=== PATIENT | male | born 1985 | race Caucasian/White ===

== ENCOUNTER 2023-12-05 21:53 | Emergency (ER) | payer OTHER, SELFPAY ==
[2023-12-05 22:01] VITALS: BP 127/83; PULSE 95; RESP 16; TEMP 36.4; O2SAT 94; BMI 24.3
--- NOTE | 2023-12-05 22:23 | ED_ITS ---
HPI - General Adult General Chief complaint: Allergic Reaction Stated complaint: Possible allergic reaction Time Seen by Provider: 12/05/23 22:09 History of Present Illness HPI narrative: This 38-year-old male comes in reporting sore throat that began yesterday. This evening he developed a generalized maculopapular rash on his trunk. He does not report any shortness of breath. He is not showing any signs of angioedema. Related Data Home Medications Medication Instructions Recorded Confirmed atomoxetine 40 mg capsule 40 mg PO QAM 12/05/23 12/05/23 pantoprazole 20 mg tablet,delayed 20 mg PO DAILY 12/05/23 12/05/23 release Previous Rx's Medication Instructions Recorded methylprednisolone 4 mg tablets in See Rx Instructions PO .COMPLEX 12/05/23 a dose pack (Medrol (Bryn)) #21 ea Allergies Allergy/AdvReac Type Severity Reaction Status Date / Time No Known Drug Allergies Allergy Verified 12/05/23 21:59 Review of Systems Status of ROS: Reports: 10 or more systems reviewed and unremarkable except as noted in History and below Narrative: Constitutional: No fevers, no weight gain or loss. Eyes: No discharge. No vision changes. HENT: No congestion, no ear pain. He reports a sore throat. Cardiovascular: No chest pain, no palpitations. Respiratory: No shortness of breath, no wheezes. He reports a chronic occasional cough since he quit smoking 5 years ago. Gastrointestinal: No abdominal pain, no vomiting, no diarrhea. Genitourinary: No dysuria, no hematuria. Musculoskeletal: Normal range of motion. Skin: No rashes, no pruritis. Neurological: No dizziness, weakness, sensory change, speech change. Endo/Heme/Allergies: No bruising or bleeding. No polydipsia. Pysch: no suicidality, no anxiety, no insomnia. All other systems reviewed and are negative. Exam Narrative: Exam Narrative: Constitutional: Well-developed, well-nourished, no acute distress. HEENT: Normocephalic, atraumatic. Pharyngeal erythema without exudate or tonsillar hypertrophy. No sign of angioedema. Neck: Normal range of motion. Nontender. Supple. Heart: Regular. No murmurs. Normal rate. Intact distal pulses. Lungs: Clear to auscultation. No chest discomfort. No wheezes, rhonchi, or rales. Abdomen: Normal bowel sounds. Nontender. No rebound tenderness. Genitalia: Deferred. Back: No midline tenderness. Normal range of motion. Extremities: Normal range of motion. No injury. Skin: Intact. No rash. Warm. No erythema or pallor. Neurologic: No altered sensation. No weakness. Alert and oriented. Psychiatric: No suicidality. No anxiety or depression. No insomnia. Nursing notes and vitals signs are reviewed. Const: Vital Signs, click to edit/add: Vital Signs - 24 hr 12/05/23 22:01 Temperature 97.5 F L Pulse Rate [Pulse Oximeter] 95 Respiratory Rate 16 [facility] 127/83 Pulse Oximetry 94 Oxygen Delivery Me thod Room Air Course Vital Signs Vital signs: Initial Vital Signs Temperature 97.5 F L 12/05/23 22:01 Temperature Source Temporal Artery Scan 12/05/23 22:01 Pulse Rate 95 12/05/23 22:01 Pulse Rhythm Regular 12/05/23 22:01 Respiratory Rate 16 12/05/23 22:01 Blood Pressure 127/83 12/05/23 22:01 Blood Pressure Mean 97 12/05/23 22:01 Blood Pressure Position Sitting 12/05/23 22:01 Pulse Oximetry 94 12/05/23 22:01 Oxygen Delivery Method Room Air 12/05/23 22:01 Vital Signs Temperature 97.5 F L 12/05/23 22:01 Pulse Rate 95 12/05/23 22:01 Respiratory Rate 16 12/05/23 22:01 Blood Pressure 127/83 12/05/23 22:01 Pulse Oximetry 94 12/05/23 22:01 Oxygen Delivery Method Room Air 12/05/23 22:01 Temperature 97.5 F L 12/05/23 22:01 Pulse Rate 95 12/05/23 22:01 Respiratory Rate 16 12/05/23 22:01 Blood Pressure 127/83 12/05/23 22:01 Pulse Oximetry 94 12/05/23 22:01 Oxygen Delivery Method Room Air 12/05/23 22:01 Medical Decision Making MDM Narrative Medical decision making narrative: This patient comes in with sore throat and now has developed a generalized maculopapular rash mostly on his trunk. He did take Benadryl 50 mg prior to arrival states that he feels that the rash is improving. He is not showing any sign of angioedema or anaphylaxis. The patient did receive an oral dose of dexamethasone 10 mg. Rapid strep test is obtained also and this returns negative. This patient is okay to return home. He did receive a prescription for Medrol Dosepak and is encouraged to use antihistamines as needed and directed also. Lab Data Labs: Lab Results 12/05/23 Range/Units 22:30 Group A Strep DNA NOT DETECTED (Not Detectd) Discharge Plan Discharge Clinical Impression: Acute viral syndrome Patient Disposition: Home, Self-Care Condition: Stable Additional Instructions: Take medication as prescribed. Use antihistamines also as needed and directed. Follow up with MD return if worsening. Prescriptions: New methylprednisolone [Medrol (Bryn)] 4 mg tablets,dose pack See Rx Instructions .ROUTE .COMPLEX Qty: 21 0RF Rx Instructions: orally per package directions No Action pantoprazole 20 mg tablet,delayed release (DR/EC) 20 mg PO DAILY atomoxetine 40 mg capsule 40 mg PO QAM Follow Up/Referrals: Efren James MD [Staff Physician] - Stand Alone Forms: [employer] Info Instructions
[2023-12-05 22:58] LABS: Strep A DNA Probe* NOT DETECTED (Not Detectd)
== END 2023-12-05 23:29 | disposition home or self-care (01) ==
PROVIDERS: Emergency Provider Emergency Medicine Emergency Medical Services
DX: B34.9 Viral infection, unspecified (principal)
CPT/HCPCS: 87651; 99282; 99283; 99284

== ENCOUNTER 2025-04-24 21:41 | Emergency (ER) | payer OTHER, SELFPAY ==
--- OUTSIDE RECORDS SUMMARY | 2025-04-24 21:43 | XMS_ITS | Clinical Summary ---
[facility] Address [address] [place] [address] Care Team Providers Care Ms Sql Developer Name Role Phone Onofre Sher MD Primary Care Provider Source Comments You are receiving this document as you are listed as the primary care provider,follow-up provider, or the patient has been referred to you for consultation.This is in compliance with the Medicare and[facility] Cent[facility] EHR Incentive Program,which states Providers who transition their patient to another setting of careor provider of care or refers their patient to another provider of care shouldprovide summary care record for each transition of care or referral. [facility] [place] Allergies No known active allergies Medications Dextromethorphan HBr (VICKS DAYQUIL COUGH OR) Take by mouth. 4 Active atomoxetine (STRATTERA) 40 MG capsule Take 1 Capsule (40 mg) by mouth every morning. 3 Active omeprazole (PRILOSEC) 20 MG capsule Take 1 Capsule (20 mg) by mouth daily. Take 1 hour before a meal. Active pantoprazole DR (PROTONIX) 20 MG tabletIndication s:PUD (peptic ulcer disease) Take 1 Tablet (20 mg) by mouth daily. 90 Tablet 3 Active Additional Information Patient not taking.Reported on 04/09/[address] (PROTONIX) 40 MG tabletIndication s:Gastroesophage al reflux disease with esophagitis without hemorrhage Take 1 Tablet (40 mg) by mouth daily. 90 Tablet 3 4 Active Active Problems Problem Noted Date Diagnosed Date PUD (peptic ulcer disease) 09/04/2023 Family history of colon cancer 09/04/2023 Immunizations Immunization Administration Dates Next Due [place] COVID-19 Vaccine 2021 MPSV4 (Menomune) 10/24/2002 TDAP (ADACEL) 11/07/2006 Family History Medical History Relation Name Comments Cancer, Colon Mother Relation Name Status Comments Mother Social History Tobacco Use Types Packs/Day Years Used Date Smoking Tobacco: Former Cigarettes Q uit: 09/04/2019 Smokeless Tobacco: Never Tobacco Cessation:Counseling Given: Not Answered Comments:Smoking History Packs/day: Alcohol Use Standard Drinks/Week Comments Yes 7 (1 standard drink = 0.6 oz pur e alcohol) Financial Resource Strain Answer Date R ecorded Is it hard for you to pay fo r the very basics like food, housing, medical care or heating? No 09/04/2023 Food Insecurity Answer Date Recorded Does your food run out before you have the money to buy more? No 09/04/2023 Transportation Needs Answer Date Record ed Does a lack of transportatio n keep you from your medical appointments or from getting your medications? 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 Respiratory Rate 16 02/13/2024 10:3 0 AM CDT Oxygen Saturation 96% 04/09/2024 8:0 9 AM CDT Inhaled Oxygen Concentration - - Weight 90.7 kg (200 lb) 02/13/2024 8:39 AM CDT Height 190.5 cm (6' 3) 02/13/2024 8:39 AM CDT Body Mass Index 25 02/13/2024 8:39 AM CDT Plan of Treatment Health Maintenance Due Date Last Done Comments Hep C Screening (Preventive Services) 1983 HIV Screening (Preventive Services) 1999 HepB Vaccine (1) 2002 DTaP/Tdap/Td Vaccine (2 - Tdap) 11/07/2016 6 COVID-19 Vaccine (2 - 2023-2 5 season) 2024 2021 Influenza Vaccine (Season Ended) 2025 Adult Preventive Visit 09/04/2025 09/04/2023 Cholesterol 09/04/2028 09/04/2023 Zoster/Shingles Vaccine (1 of 2) 2033 MCV4 Vaccine Aged Out 10/24/2002 No longer eligi ble based on patient's age to complete this topic HPV Vaccine Aged Out No longer eligi ble based on patient's age to complete this topic HepA Vaccine Aged Out No longer eligi ble based on patient's age to complete this topic Hib Vaccine Aged Out No longer eligi ble based on patient's age to complete this topic IPV (Polio) Vaccine Aged Out No longe r eligible based on patient's age to complete this topic Meningococcal B Vaccine Aged Out No l onger eligible based on patient's age to complete this topic Pneumococcal Vaccine Aged Out No long er eligible based on patient's age to complete this topic Procedures Procedure Name Priority Date/Time Associated Diagnosis Comments LIPID PANEL & DIRECT LDL (IF NEEDED) Routine 09/04/2023 2:55 PM CDT Screening for cholesterol level from Last 3 Months or Most Recently Relevant to Health Maintenance Results * (ABNORMAL) Lipid Panel and Direct LDL(If Needed) (09/04/2023 2:55 PM CDT) [facility] Cholesterol 123 0 - 199 mg/dL 09/04/2023 5:24 PM CDT [facility] Triglyceride 214(H) <=149 mg/dL 09/04/2023 5:24 PM CDT [facility] HDL Cholesterol 25(L) >=40 mg/dL 5:24 PM CDT [facility] LDL, Calculated 55 <130 mg/dL 5:24 PM CDT [facility] Non HDL Chol, Calculated 98 <=159 mg/dL 09/04/2023 5:24 PM CDT [facility] Cholesterol/HDL Ratio 4.9 09/04/2023 5:24 PM CDT [facility] Hours Fasting 0.1 8 - 12 Hours 09/04/2023 5:24 PM CDT [facility] Comment:Lab unable to obtain patient's fasting status at time of specimen collection. Blood Venipuncture / Unknown 09/04/2023 2:55 PM CDT 09/04/2023 2:55 PM CDT us Onofre Sher MD LAB_1 Final Result [facility] [id number] [place] [address], [facility] [phone] from Last 3 Months or Most Recently Relevant to Health Maintenance Insurance SELF INSURED SELF [employer] Care Teams Ms Sql Developer Relationship Specialty [place] [id number] [place] [address] [id number] PCP - General Family Practice 08/27/23
[2025-04-24 21:52] VITALS: BP 145/93; PULSE 72; RESP 16; TEMP 36.9; O2SAT 95; BMI 24.3
--- NOTE | 2025-04-24 22:27 | ED.WOUNDLAC ---
HPI - Wound/Laceration General Chief Complaint: Laceration/Wound Stated Complaint: Cut between thumb and index finger RT hand Time Seen by Provider: 04/24/25 21:44 Source: patient Mode of arrival: ambulatory Limitations: no limitations History of Present Illness HPI narrative: Patient is a very nice gentleman who presents here with a cut to his right hand, between his 2nd finger in his thumb, he occurred when he was moving glasses a shot of the knife there are across his hand he has noted some mild bleeding, no numbness no tingling no loss of movement of his hand came into the thought he might need some stitches. 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 Patient tetanus UTD: Yes Context: accidental Associated symptoms: none Related Data Home Medications ?Medication ?Instructions ?Recorded ?Confirmed atomoxetine 40 mg capsule 40 mg PO QAM 12/05/23 12/05/23 pantoprazole 20 mg tablet,delayed 20 mg PO DAILY 12/05/23 12/05/23 release Previous Rx's ?Medication ?Instructions ?Recorded methylprednisolone 4 mg tablets in See Rx Instructions PO .COMPLEX 12/05/23 a dose pack (Medrol (Bryn)) #21 ea Allergies Allergy/AdvReac Type Severity Reaction Status Date / Time No Known Drug Allergies Allergy Verified 12/05/23 21:59 Review of Systems Status of ROS: Reports: 6 or more systems reviewed and unremarkable except as noted in History and below PFSH PFS Social History How often do you have a drink containing alcohol: never AUDIT-C Alcohol total score: 0 Non-prescribed substance use: denies use Exam Narrative: Exam Narrative: On examination a very small cut of approximately 4-5 mm is noted, in the interdigital space, between his thumb and 2nd finger. It is not gaping, there is a little bit of fat protruding but goes in quite easily he has full MCP extension, of both his MCP and PIP and D IP joints of the 2nd the finger. And full flexion of these joints also. Full extension flexion of the IP joint and abduction adduction of his 1st of his thumb and 2nd fingers normal cap refills normal sensations normal. No evidence foreign body, the wound is cleaned out, I then was able to glue this with Steri-Strips to support this. And this heat tolerated this well. Const: Vital Signs, click to edit/add: Vital Signs - 24 hr 04/24/25 21:52 Temperature 98.4 F Pulse Rate [Pulse Oximeter] 72 Respiratory Rate 16 Blood Pressure [Ri ght Upper Arm] 145/93 H Pulse Oximetry 95 Oxygen Delivery Me thod Room Air Documenting provider has reviewed patient's vital signs: yes Course Vital Signs Vital signs: Initial Vital Signs Temperature 98.4 F 04/24/25 21:52 Temperature Source Temporal Artery Scan 04/24/25 21:52 Pulse Rate 72 04/24/25 21:52 Respiratory Rate 16 04/24/25 21:52 Blood Pressure 145/93 H 04/24/25 21:52 Blood Pressure Mean 110 H 04/24/25 21:52 Blood Pressure Position Sitting 04/24/25 21:52 Pulse Oximetry 95 04/24/25 21:52 Oxygen Delivery Method Room Air 04/24/25 21:52 Vital Signs Temperature 98.4 F 04/24/25 21:52 Pulse Rate 72 04/24/25 21:52 Respiratory Rate 16 04/24/25 21:52 Blood Pressure 145/93 H 04/24/25 21:52 Pulse Oximetry 95 04/24/25 21:52 Oxygen Delivery Method Room Air 04/24/25 21:52 Temperature 98.4 F 04/24/25 21:52 Pulse Rate 72 04/24/25 21:52 Respiratory Rate 16 04/24/25 21:52 Blood Pressure 145/93 H 04/24/25 21:52 Pulse Oximetry 95 04/24/25 21:52 Oxygen Delivery Method Room Air 04/24/25 21:52 MDM - Wound/Laceration MDM Narrative Medical decision making narrative: During this evaluation I considered multiple diagnosis is including tendon laceration, interdigital nerve laceration, infection form body. Differential Diagnosis Differential diagnosis: Likely laceration, abscess, abrasion and avulsion of skin Medical Records Attestation: I reviewed the patient's medical records. Discharge Plan Discharge Clinical Impression: Laceration Patient Disposition: Home w/ Parent or Adult Condition: Stable Instructions: Finger Laceration (ED), Skin Adhesive Care (ED), Skin Adhesive Strips (ED) Additional Instructions: Home, rest, do not put any antibiotic ointment on there as that will take off the glue, glue comes off by itself in 3-5 days, light activity with using your right hand return here if increasing redness swelling fevers chills or signs of infection. Activity Level: Light activity Prescriptions: No Action pantoprazole 20 mg tablet,delayed release (DR/EC) 20 mg PO DAILY atomoxetine 40 mg capsule 40 mg PO QAM methylprednisolone [Medrol (Bryn)] 4 mg tablets,dose pack See Rx Instructions .ROUTE .COMPLEX Qty: 21 0RF Rx Instructions: orally per package directions Follow Up/Referrals: Provider,Not a Local [Primary Care Provider, Family Practice] Stand Alone Forms: [employer] Info Instructions
[2025-04-24 22:44] VITALS: BP 135/77; PULSE 75; RESP 16; TEMP 36.9; O2SAT 95
== END 2025-04-24 22:44 | disposition home or self-care (01) ==
LOC: ED 22:33
PROVIDERS: Emergency Provider Family Medicine
DX: S61.411A Laceration without foreign body of right hand, initial encounter (principal); W45.8XXA Other foreign body or object entering through skin, initial encounter
CPT/HCPCS: 12001; 99282; 99283